=== PATIENT | male | born 1940 | race Caucasian/White ===

== ENCOUNTER 2016-07-23 10:07 | Emergency (ER) | payer MEDICARE ==
--- NOTE | 2016-07-23 11:11 | CT ---
HEAD W/O CON: 07/23/2016 10:55 AM CLINICAL HISTORY: Ground-level fall. Patient is on anticoagulant therapy. COMPARISON: 12/13/2015 TECHNIQUE: Contiguous axial 5 mm images from skull base to the vertex were obtained without IV contrast. Sagittal and coronal reformations with bone algorithm images were also obtained at this time. CT DI:: 51.7 DLP: 887.3 FINDINGS: Infarct: None Extra axial spaces: Stable minimal subdural collection along the right parietal region. This is subjacent to the craniotomy region and may relate to postsurgical change.. Hemorrhage: None. Ventricular system: Normal in size and morphology for the patient's age. Basal cisterns: Normal. 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 Midline shift: None. Cerebellum: Normal. Brainstem: Normal. OTHER: Calvarium: Postsurgical change from right craniotomy.. Vascular system: Normal. Visualized Paranasal sinuses and Mastoid air cells: Clear. Visualized Orbits and regional soft tissues: Normal. IMPRESSION: Stable examination with areas of encephalomalacia from prior infarction, with postsurgical change as detailed above. Report was uploaded to the electronic medical record at approximately 1107 hours on 07/22/2016.
[2016-07-23 11:12] LABS: INR 2.88; PROTHROMBIN TIME 31.9 SECONDS (9.3-11.4)
== END 2016-07-23 11:31 | disposition home or self-care (01) ==
LOC: ED 10:07
DX: S00.93XA Contusion of unspecified part of head, initial encounter (principal); I10 Essential (primary) hypertension; I48.91 Unspecified atrial fibrillation; I50.9 Heart failure, unspecified; Z79.01 Long term (current) use of anticoagulants; W06.XXXA Fall from bed, initial encounter; Y92.003 Bedroom of unspecified non-institutional (private) residence as the place of occurrence of the external cause